=== PATIENT | male | born 1970 | race African-American/Black ===

== ENCOUNTER 2021-05-14 14:17 | Inpatient (IN) | payer OTHER ==
[2021-05-14 15:29] VITALS: BMI 27.6
[2021-05-14] MEDS ORDERED: MENTHOL/PHENOL 1 EACH UD MM PRN (16:05)
[2021-05-14] MEDS ORDERED: LORazepam 1 MG TABLET PO PRN (16:05)
[2021-05-14] MEDS ORDERED: METHOCARBAMOL 500 MG TABLET PO PRN (16:05)
[2021-05-14] MEDS ORDERED: ONDANSETRON *ODT* 4 MG TABLET SL PRN (16:05)
[2021-05-14] MEDS ORDERED: MAGNESIUM HYDROX 2400MG/30ML ORAL SUSPENSION 30 ML CUP PO PRN (16:05)
[2021-05-14] MEDS ORDERED: MAG HYDROX/AL HYDROX/SIMETH 30 ML UNIT-DOSE CUP PO PRN (16:05)
[2021-05-14] MEDS ORDERED: ACETAMINOPHEN 325 MG TABLET (FP) PO PRN ×2 (16:05)
[2021-05-14] MEDS ORDERED: BISMUTH SUBSALICYLATE 524 MG/30 ML PO PRN (16:05)
[2021-05-14] MEDS ORDERED: IBUPROFEN 400 MG TABLET (FP) PO PRN (16:05)
[2021-05-14] MEDS ORDERED: MAGNESIUM CITRATE 300 ML BOTTLE PO PRN (16:05)
[2021-05-14] MEDS: LORazepam 2 MG TABLET PO SCH ×2 (19:17→22:37)
[2021-05-14] MEDS: hydrOXYzine PAMOATE 25 MG CAPSULE (FP) PO SCH ×2 (19:19→22:57)
[2021-05-14] MEDS ORDERED: INSULIN SLIDING SCALE (NOVOLOG) 1 VIAL SQ SCH ×2 (19:38→22:00)
[2021-05-14] MEDS: INSULIN SLIDING SCALE (NOVOLOG) 1 VIAL SQ SCH ×2 (20:25→22:42)
[2021-05-14] MEDS ORDERED: INSULIN SLIDING SCALE (NOVOLOG) 1 VIAL SQ ONE (20:27)
[2021-05-14] MEDS: THIAMINE HCL 100 MG TABLET (FP) PO SCH (22:37)
[2021-05-14] MEDS: MELATONIN 5 MG TABLETS PO SCH (22:41)
[2021-05-15] MEDS: hydrOXYzine PAMOATE 25 MG CAPSULE (FP) PO SCH ×5 (06:04→22:47)
[2021-05-15] MEDS: LORazepam 2 MG TABLET PO SCH ×4 (06:05→22:47)
[2021-05-15] MEDS: INSULIN SLIDING SCALE (NOVOLOG) 1 VIAL SQ SCH ×4 (06:50→22:50)
[2021-05-15 10:02] LABS: HEMOGLOBIN 10.6 GM/dL (11.7-16.9); MCH 23.9 pg (25.7-33.7); MCHC 31.3 g/dl (32.0-35.9); MEAN CELL VOLUME 76.2 fl (80-96); MEAN PLT VOLUME 8.3 fl (7.5-11.1); PLATELET COUNT 258 10^3/uL (134-434); RBC 4.46 M/mm3 (4.00-5.60); WHITE BLOOD COUNT 4.7 K/mm3 (4.0-10.0)
[2021-05-15 10:11] LABS: BILIRUBIN,TOTAL 0.6 mg/dL (0.2-1); BLOOD UREA NITROGEN 8.2 mg/dL (7-18)
[2021-05-15 10:12] LABS: CALCIUM 8.4 mg/dL (8.5-10.1); TOT PROT 6.7 g/dl (6.4-8.2)
[2021-05-15 10:14] LABS: CREATININE 0.8 mg/dL (0.55-1.3)
[2021-05-15] MEDS: PRENATAL VITAMINS W/ FOLIC ACID TABLET (FP) PO SCH (11:04)
[2021-05-15] MEDS ORDERED: INSULIN SLIDING SCALE (NOVOLOG) 1 VIAL SQ ONE (11:37)
[2021-05-15] MEDS: MELATONIN 5 MG TABLETS PO SCH (22:46)
[2021-05-15] MEDS: THIAMINE HCL 100 MG TABLET (FP) PO SCH (22:47)
[2021-05-16] MEDS: INSULIN SLIDING SCALE (NOVOLOG) 1 VIAL SQ SCH ×4 (07:43→22:37)
[2021-05-16] MEDS: LORazepam 1 MG TABLET PO SCH ×4 (07:43→22:33)
[2021-05-16] MEDS: hydrOXYzine PAMOATE 25 MG CAPSULE (FP) PO SCH ×5 (07:43→22:33)
[2021-05-16] MEDS ORDERED: INSULIN SLIDING SCALE (NOVOLOG) 1 VIAL SQ ONE (07:47)
[2021-05-16] MEDS: PRENATAL VITAMINS W/ FOLIC ACID TABLET (FP) PO SCH (10:31)
[2021-05-16] MEDS: MELATONIN 5 MG TABLETS PO SCH (22:33)
[2021-05-16] MEDS: THIAMINE HCL 100 MG TABLET (FP) PO SCH (22:33)
[2021-05-17] MEDS ORDERED: LORazepam 0.5 MG TABLET PO PRN
[2021-05-17] MEDS: hydrOXYzine PAMOATE 25 MG CAPSULE (FP) PO SCH ×5 (07:06→22:40)
[2021-05-17] MEDS: LORazepam 0.5 MG TABLET PO SCH ×4 (07:06→22:40)
[2021-05-17] MEDS: INSULIN SLIDING SCALE (NOVOLOG) 1 VIAL SQ SCH ×4 (07:11→23:14)
[2021-05-17] MEDS: PRENATAL VITAMINS W/ FOLIC ACID TABLET (FP) PO SCH (10:09)
[2021-05-17] MEDS: INSULIN (NOVOLOG MIX 70/30) 100 UNITS/ML MDV SQ SCH (17:45)
[2021-05-17] MEDS: MELATONIN 5 MG TABLETS PO SCH (22:40)
[2021-05-17] MEDS: THIAMINE HCL 100 MG TABLET (FP) PO SCH (22:40)
[2021-05-18] MEDS ORDERED: LORazepam 0.5 MG TABLET PO ONE (05:00)
[2021-05-18] MEDS: hydrOXYzine PAMOATE 25 MG CAPSULE (FP) PO SCH ×2 (06:38→10:36)
[2021-05-18] MEDS: INSULIN SLIDING SCALE (NOVOLOG) 1 VIAL SQ SCH ×5 (06:41→22:35)
[2021-05-18] MEDS: INSULIN (NOVOLOG MIX 70/30) 100 UNITS/ML MDV SQ SCH ×2 (07:37→17:30)
[2021-05-18] MEDS: PRENATAL VITAMINS W/ FOLIC ACID TABLET (FP) PO SCH (10:36)
[2021-05-18] MEDS ORDERED: hydrOXYzine PAMOATE 25 MG CAPSULE (FP) PO PRN (11:21)
[2021-05-18] MEDS: MELATONIN 5 MG TABLETS PO SCH ×2 (22:29→22:35)
[2021-05-18] MEDS: THIAMINE HCL 100 MG TABLET (FP) PO SCH (22:29)
[2021-05-19] MEDS: INSULIN (NOVOLOG MIX 70/30) 100 UNITS/ML MDV SQ SCH (07:38)
[2021-05-19] MEDS: INSULIN SLIDING SCALE (NOVOLOG) 1 VIAL SQ SCH ×2 (07:39→12:51)
[2021-05-19] MEDS: PRENATAL VITAMINS W/ FOLIC ACID TABLET (FP) PO SCH (11:14)
[2021-05-19 13:31] VITALS: BP 118/79; PULSE 102; TEMP 96.4
== END 2021-05-19 15:37 | disposition other institution (70) | DRG 775 ==
LOC: YASAS 14:17 → Y3N 16:27
PROVIDERS: ADMIT Allergy & Immunology; ATTEND Allergy & Immunology
PROC: HZ2ZZZZ Detoxification Services for Substance Abuse Treatment (ICD-10-PCS; principal; 2021-05-14)
DX: F10.230 Alcohol dependence with withdrawal, uncomplicated (principal); E10.65 Type 1 diabetes mellitus with hyperglycemia; D64.9 Anemia, unspecified; R00.0 Tachycardia, unspecified; Z79.4 Long term (current) use of insulin
CPT/HCPCS: 36415; 80053; 82962; 85027; 86780; 93005; 93010; C9803; U0003; U0005

== ENCOUNTER 2021-05-19 15:39 | Inpatient (IN) | payer OTHER ==
[2021-05-19] MEDS ORDERED: MAGNESIUM CITRATE 300 ML BOTTLE PO PRN (15:53)
[2021-05-19] MEDS ORDERED: MENTHOL/PHENOL 1 EACH UD MM PRN (15:53)
[2021-05-19] MEDS ORDERED: LOPERAMIDE HCL 2 MG CAPSULE PO PRN (15:53)
[2021-05-19] MEDS ORDERED: guaiFENesin 200 MG/10 ML 10 ML UNIT-DOSE CUPS PO PRN (15:53)
[2021-05-19] MEDS ORDERED: P-EPHED 60MG/TRIPROLIDI 2.5MG TABLET PO PRN (15:53)
[2021-05-19] MEDS ORDERED: NICOTINE POLACRILEX 2 MG GUM BUC PRN (15:53)
[2021-05-19] MEDS ORDERED: MAGNESIUM HYDROX 2400MG/30ML ORAL SUSPENSION 30 ML CUP PO PRN (15:53)
[2021-05-19] MEDS ORDERED: MAG HYDROX/AL HYDROX/SIMETH 30 ML UNIT-DOSE CUP PO PRN (15:53)
[2021-05-19] MEDS ORDERED: IBUPROFEN 400 MG TABLET (FP) PO PRN (15:53)
[2021-05-19] MEDS ORDERED: ACETAMINOPHEN 325 MG TABLET (FP) PO PRN (15:53)
[2021-05-19] MEDS: INSULIN (NOVOLOG MIX 70/30) 100 UNITS/ML MDV SQ SCH (17:35)
[2021-05-19] MEDS: INSULIN SLIDING SCALE (NOVOLOG) 1 VIAL SQ SCH ×2 (17:38→21:31)
[2021-05-19] MEDS ORDERED: INSULIN (NOVOLOG) ASPART 100 UNITS/ML 10ML VIAL ONE (21:32)
[2021-05-19] MEDS: THIAMINE HCL 100 MG TABLET (FP) PO SCH (21:33)
[2021-05-19] MEDS: hydrOXYzine PAMOATE 25 MG CAPSULE (FP) PO PRN (21:33)
[2021-05-19] MEDS: MELATONIN 5 MG TABLETS PO SCH (21:33)
[2021-05-19] MEDS: levETIRAcetam 500 MG TABLET (FP) PO SCH (21:33)
[2021-05-20] MEDS: INSULIN SLIDING SCALE (NOVOLOG) 1 VIAL SQ SCH ×4 (06:28→22:56)
[2021-05-20] MEDS: INSULIN (NOVOLOG MIX 70/30) 100 UNITS/ML MDV SQ SCH ×2 (06:28→17:09)
[2021-05-20] MEDS ORDERED: INSULIN (NOVOLOG MIX 70/30) 100 UNITS/ML MDV SQ SCH (07:00)
[2021-05-20] MEDS ORDERED: METHOCARBAMOL 500 MG TABLET PO PRN (09:31)
[2021-05-20] MEDS: levETIRAcetam 500 MG TABLET (FP) PO SCH ×2 (09:40→21:51)
[2021-05-20] MEDS: PRENATAL VITAMINS W/ FOLIC ACID TABLET (FP) PO SCH (09:40)
[2021-05-20] MEDS: NICOTINE 7 MG/24 HOURS TOPICAL PATCH TD SCH (09:40)
[2021-05-20] MEDS ORDERED: COLLOIDAL OATMEAL 1 BAR EACH TP PRN (10:56)
[2021-05-20] MEDS: FOLIC ACID 1 MG TABLET (FP) PO SCH (11:28)
[2021-05-20] MEDS ORDERED: INSULIN (NOVOLOG) ASPART 100 UNITS/ML 10ML VIAL ONE ×2 (11:30→17:06)
[2021-05-20 12:34] LABS: HIV INTERPRETATION NEGATIVE (NEGATIVE)
[2021-05-20] MEDS: THIAMINE HCL 100 MG TABLET (FP) PO SCH (21:55)
[2021-05-20] MEDS: MELATONIN 5 MG TABLETS PO SCH ×2 (22:56→23:56)
[2021-05-20] MEDS: hydrOXYzine PAMOATE 25 MG CAPSULE (FP) PO PRN (23:55)
[2021-05-21] MEDS: INSULIN SLIDING SCALE (NOVOLOG) 1 VIAL SQ SCH ×4 (06:29→21:24)
[2021-05-21] MEDS: INSULIN (NOVOLOG MIX 70/30) 100 UNITS/ML MDV SQ SCH ×2 (06:30→16:55)
[2021-05-21] MEDS: PRENATAL VITAMINS W/ FOLIC ACID TABLET (FP) PO SCH (10:35)
[2021-05-21] MEDS: NICOTINE 7 MG/24 HOURS TOPICAL PATCH TD SCH (10:35)
[2021-05-21] MEDS: levETIRAcetam 500 MG TABLET (FP) PO SCH ×2 (10:35→21:22)
[2021-05-21] MEDS: PANTOPRAZOLE 40 MG TABLET PO SCH (10:35)
[2021-05-21] MEDS: FOLIC ACID 1 MG TABLET (FP) PO SCH (10:35)
[2021-05-21] MEDS ORDERED: INSULIN (NOVOLOG) ASPART 100 UNITS/ML 10ML VIAL ONE ×2 (17:10→23:41)
[2021-05-21] MEDS: THIAMINE HCL 100 MG TABLET (FP) PO SCH (21:22)
[2021-05-21] MEDS: MELATONIN 5 MG TABLETS PO SCH (21:22)
[2021-05-22] MEDS ORDERED: INSULIN (NOVOLOG) ASPART 100 UNITS/ML 10ML VIAL ONE ×4 (07:12→22:34)
[2021-05-22] MEDS: INSULIN SLIDING SCALE (NOVOLOG) 1 VIAL SQ SCH ×4 (08:38→21:19)
[2021-05-22] MEDS: INSULIN (NOVOLOG MIX 70/30) 100 UNITS/ML MDV SQ SCH ×2 (08:38→16:57)
[2021-05-22] MEDS: NICOTINE 7 MG/24 HOURS TOPICAL PATCH TD SCH (10:17)
[2021-05-22] MEDS: levETIRAcetam 500 MG TABLET (FP) PO SCH ×2 (10:46→21:18)
[2021-05-22] MEDS: PANTOPRAZOLE 40 MG TABLET PO SCH (10:46)
[2021-05-22] MEDS: PRENATAL VITAMINS W/ FOLIC ACID TABLET (FP) PO SCH (10:46)
[2021-05-22] MEDS: FOLIC ACID 1 MG TABLET (FP) PO SCH (10:46)
[2021-05-22] MEDS: THIAMINE HCL 100 MG TABLET (FP) PO SCH (21:19)
[2021-05-22] MEDS: MELATONIN 5 MG TABLETS PO SCH (21:19)
[2021-05-23] MEDS: INSULIN SLIDING SCALE (NOVOLOG) 1 VIAL SQ SCH ×4 (06:18→21:45)
[2021-05-23] MEDS: INSULIN (NOVOLOG MIX 70/30) 100 UNITS/ML MDV SQ SCH ×2 (06:22→16:37)
[2021-05-23] MEDS ORDERED: PT OWN MED DRAWER 7, Y5N ONE (09:27)
[2021-05-23] MEDS: NICOTINE 7 MG/24 HOURS TOPICAL PATCH TD SCH (09:45)
[2021-05-23] MEDS: PRENATAL VITAMINS W/ FOLIC ACID TABLET (FP) PO SCH (09:45)
[2021-05-23] MEDS: levETIRAcetam 500 MG TABLET (FP) PO SCH ×2 (09:46→21:44)
[2021-05-23] MEDS: PANTOPRAZOLE 40 MG TABLET PO SCH (09:46)
[2021-05-23] MEDS: FOLIC ACID 1 MG TABLET (FP) PO SCH (09:46)
[2021-05-23] MEDS ORDERED: INSULIN (NOVOLOG) ASPART 100 UNITS/ML 10ML VIAL ONE (11:46)
[2021-05-23] MEDS: THIAMINE HCL 100 MG TABLET (FP) PO SCH (21:44)
[2021-05-23] MEDS: MELATONIN 5 MG TABLETS PO SCH (21:44)
[2021-05-24] MEDS: INSULIN (NOVOLOG MIX 70/30) 100 UNITS/ML MDV SQ SCH ×2 (06:32→19:05)
[2021-05-24] MEDS: INSULIN SLIDING SCALE (NOVOLOG) 1 VIAL SQ SCH ×4 (06:32→20:59)
[2021-05-24] MEDS: PRENATAL VITAMINS W/ FOLIC ACID TABLET (FP) PO SCH (09:43)
[2021-05-24] MEDS: FOLIC ACID 1 MG TABLET (FP) PO SCH (09:43)
[2021-05-24] MEDS: NICOTINE 7 MG/24 HOURS TOPICAL PATCH TD SCH (09:43)
[2021-05-24] MEDS: levETIRAcetam 500 MG TABLET (FP) PO SCH ×2 (09:44→20:59)
[2021-05-24] MEDS: PANTOPRAZOLE 40 MG TABLET PO SCH (09:44)
[2021-05-24] MEDS ORDERED: INSULIN (NOVOLOG) ASPART 100 UNITS/ML 10ML VIAL ONE ×3 (11:26→21:57)
[2021-05-24] MEDS ORDERED: PT OWN MED DRAWER 7, Y5N ONE (11:27)
[2021-05-24] MEDS: MELATONIN 5 MG TABLETS PO SCH (20:59)
[2021-05-24] MEDS: THIAMINE HCL 100 MG TABLET (FP) PO SCH (20:59)
[2021-05-25] MEDS: INSULIN (NOVOLOG MIX 70/30) 100 UNITS/ML MDV SQ SCH (06:40)
[2021-05-25] MEDS: INSULIN SLIDING SCALE (NOVOLOG) 1 VIAL SQ SCH ×2 (06:40→11:42)
[2021-05-25 06:51] VITALS: BP 122/75; PULSE 87; TEMP 97.3
[2021-05-25] MEDS: FOLIC ACID 1 MG TABLET (FP) PO SCH (09:29)
[2021-05-25] MEDS: levETIRAcetam 500 MG TABLET (FP) PO SCH (09:29)
[2021-05-25] MEDS: PANTOPRAZOLE 40 MG TABLET PO SCH (09:30)
[2021-05-25] MEDS: NICOTINE 7 MG/24 HOURS TOPICAL PATCH TD SCH (09:30)
[2021-05-25] MEDS: PRENATAL VITAMINS W/ FOLIC ACID TABLET (FP) PO SCH (09:30)
[2021-05-25] MEDS ORDERED: COVID-19 VAC,AD26(JANSSEN)/PF 0.5 ML IM ONE (11:00)
== END 2021-05-25 14:40 | disposition home or self-care (01) | DRG 772 ==
LOC: YASAS 15:39 → Y3E 15:49
PROVIDERS: ADMIT Allergy & Immunology; ATTEND Allergy & Immunology
PROC: HZ42ZZZ Group Counseling for Substance Abuse Treatment, Cognitive-Behavioral (ICD-10-PCS; principal; 2021-05-19)
DX: F10.20 Alcohol dependence, uncomplicated (principal); G40.909 Epilepsy, unspecified, not intractable, without status epilepticus; E11.9 Type 2 diabetes mellitus without complications; Z79.4 Long term (current) use of insulin; Z88.8 Allergy status to other drugs, medicaments and biological substances; Z91.048 Other nonmedicinal substance allergy status; Z91.013 Allergy to seafood
CPT/HCPCS: 0031A; 36415; 80177; 82962; 87389; 91303

== ENCOUNTER 2021-10-12 14:32 | Inpatient (IN) | payer OTHER ==
[2021-10-12] MEDS ORDERED: ONDANSETRON *ODT* 4 MG TABLET SL PRN (16:36)
[2021-10-12] MEDS ORDERED: MENTHOL/PHENOL 1 EACH UD MM PRN (16:36)
[2021-10-12] MEDS ORDERED: MAGNESIUM HYDROX 2400MG/30ML ORAL SUSPENSION 30 ML CUP PO PRN (16:36)
[2021-10-12] MEDS ORDERED: ACETAMINOPHEN 325 MG TABLET (FP) PO PRN ×2 (16:36)
[2021-10-12] MEDS ORDERED: METHOCARBAMOL 500 MG TABLET PO PRN (16:36)
[2021-10-12] MEDS ORDERED: MAGNESIUM CITRATE 300 ML BOTTLE PO PRN (16:36)
[2021-10-12] MEDS ORDERED: IBUPROFEN 400 MG TABLET (FP) PO PRN (16:36)
[2021-10-12] MEDS ORDERED: BISMUTH SUBSALICYLATE 524 MG/30 ML PO PRN (16:36)
[2021-10-12] MEDS ORDERED: MAG HYDROX/AL HYDROX/SIMETH 30 ML UNIT-DOSE CUP PO PRN (16:36)
[2021-10-12] MEDS ORDERED: ALBUTEROL SO4 HFA INHALER IH PRN (16:42)
[2021-10-12 17:05] VITALS: BMI 28.3
[2021-10-12] MEDS: hydrOXYzine PAMOATE 25 MG CAPSULE (FP) PO SCH ×2 (18:42→22:48)
[2021-10-12] MEDS: MELATONIN 5 MG TABLETS PO SCH (22:47)
[2021-10-12] MEDS: levETIRAcetam 500 MG TABLET (FP) PO SCH (22:47)
[2021-10-12] MEDS: INSULIN SLIDING SCALE (NOVOLOG) 1 VIAL SQ SCH (22:49)
[2021-10-12] MEDS: THIAMINE HCL 100 MG TABLET (FP) PO SCH (23:06)
[2021-10-12] MEDS: HYDROCORTISONE 2.5% TOPICAL CREAM 30 GM TUBE TP SCH (23:07)
[2021-10-13] MEDS ORDERED: INSULIN (NOVOLOG MIX 70/30) 100 UNITS/ML MDV SQ ONE (04:25)
[2021-10-13] MEDS: hydrOXYzine PAMOATE 25 MG CAPSULE (FP) PO SCH ×5 (05:47→22:19)
[2021-10-13] MEDS: INSULIN (NOVOLOG MIX 70/30) 100 UNITS/ML MDV SQ SCH ×2 (06:15→17:50)
[2021-10-13] MEDS: INSULIN SLIDING SCALE (NOVOLOG) 1 VIAL SQ SCH ×4 (06:15→22:19)
[2021-10-13] MEDS ORDERED: diazePAM 5 MG TABLET PO PRN (09:38)
[2021-10-13] MEDS: levETIRAcetam 500 MG TABLET (FP) PO SCH ×2 (10:08→22:18)
[2021-10-13] MEDS: PANTOPRAZOLE 40 MG TABLET PO SCH (10:09)
[2021-10-13] MEDS: PRENATAL VITAMINS W/ FOLIC ACID TABLET (FP) PO SCH (10:09)
[2021-10-13] MEDS: HYDROCORTISONE 2.5% TOPICAL CREAM 30 GM TUBE TP SCH (10:09)
[2021-10-13] MEDS: diazePAM 5 MG TABLET PO SCH ×3 (10:10→22:19)
[2021-10-13] MEDS ORDERED: INSULIN (NOVOLOG) ASPART 100 UNITS/ML 10ML VIAL SQ ONE (14:00)
[2021-10-13] MEDS: MELATONIN 5 MG TABLETS PO SCH (22:19)
[2021-10-13] MEDS: THIAMINE HCL 100 MG TABLET (FP) PO SCH (22:19)
[2021-10-14] MEDS: hydrOXYzine PAMOATE 25 MG CAPSULE (FP) PO SCH ×5 (06:31→23:11)
[2021-10-14] MEDS: diazePAM 5 MG TABLET PO SCH ×4 (06:32→23:11)
[2021-10-14] MEDS: INSULIN (NOVOLOG MIX 70/30) 100 UNITS/ML MDV SQ SCH ×2 (06:39→18:20)
[2021-10-14] MEDS: INSULIN SLIDING SCALE (NOVOLOG) 1 VIAL SQ SCH ×4 (06:40→23:09)
[2021-10-14] MEDS: levETIRAcetam 500 MG TABLET (FP) PO SCH ×2 (10:46→23:09)
[2021-10-14] MEDS: PRENATAL VITAMINS W/ FOLIC ACID TABLET (FP) PO SCH (10:46)
[2021-10-14] MEDS: PANTOPRAZOLE 40 MG TABLET PO SCH (10:46)
[2021-10-14] MEDS: HYDROCORTISONE 2.5% TOPICAL CREAM 30 GM TUBE TP SCH (10:47)
[2021-10-14] MEDS: MELATONIN 5 MG TABLETS PO SCH (23:09)
[2021-10-14] MEDS: THIAMINE HCL 100 MG TABLET (FP) PO SCH (23:11)
[2021-10-15] MEDS: hydrOXYzine PAMOATE 25 MG CAPSULE (FP) PO SCH ×5 (05:26→21:38)
[2021-10-15] MEDS: diazePAM 5 MG TABLET PO SCH ×3 (05:27→21:37)
[2021-10-15] MEDS: INSULIN SLIDING SCALE (NOVOLOG) 1 VIAL SQ SCH ×4 (06:22→21:39)
[2021-10-15] MEDS: INSULIN (NOVOLOG MIX 70/30) 100 UNITS/ML MDV SQ SCH ×2 (06:23→18:31)
[2021-10-15] MEDS: levETIRAcetam 500 MG TABLET (FP) PO SCH ×2 (10:10→21:38)
[2021-10-15] MEDS: PANTOPRAZOLE 40 MG TABLET PO SCH (10:10)
[2021-10-15] MEDS: PRENATAL VITAMINS W/ FOLIC ACID TABLET (FP) PO SCH (10:10)
[2021-10-15] MEDS: HYDROCORTISONE 2.5% TOPICAL CREAM 30 GM TUBE TP SCH (10:11)
[2021-10-15] MEDS: THIAMINE HCL 100 MG TABLET (FP) PO SCH (21:37)
[2021-10-15] MEDS: MELATONIN 5 MG TABLETS PO SCH (21:39)
[2021-10-16] MEDS: diazePAM 5 MG TABLET PO SCH ×2 (05:23→18:36)
[2021-10-16] MEDS: hydrOXYzine PAMOATE 25 MG CAPSULE (FP) PO SCH ×5 (05:24→21:52)
[2021-10-16] MEDS: INSULIN SLIDING SCALE (NOVOLOG) 1 VIAL SQ SCH ×4 (08:11→21:53)
[2021-10-16] MEDS: INSULIN (NOVOLOG MIX 70/30) 100 UNITS/ML MDV SQ SCH ×2 (08:11→18:41)
[2021-10-16] MEDS: levETIRAcetam 500 MG TABLET (FP) PO SCH ×2 (10:28→21:52)
[2021-10-16] MEDS: PRENATAL VITAMINS W/ FOLIC ACID TABLET (FP) PO SCH (10:28)
[2021-10-16] MEDS: HYDROCORTISONE 2.5% TOPICAL CREAM 30 GM TUBE TP SCH (10:28)
[2021-10-16] MEDS: PANTOPRAZOLE 40 MG TABLET PO SCH (10:28)
[2021-10-16] MEDS: THIAMINE HCL 100 MG TABLET (FP) PO SCH (21:52)
[2021-10-16] MEDS: MELATONIN 5 MG TABLETS PO SCH (21:53)
[2021-10-17] MEDS ORDERED: diazePAM 5 MG TABLET PO ONE (06:00)
[2021-10-17] MEDS: hydrOXYzine PAMOATE 25 MG CAPSULE (FP) PO SCH ×3 (06:40→14:12)
[2021-10-17] MEDS: INSULIN (NOVOLOG MIX 70/30) 100 UNITS/ML MDV SQ SCH (06:42)
[2021-10-17] MEDS: INSULIN SLIDING SCALE (NOVOLOG) 1 VIAL SQ SCH ×2 (06:43→12:14)
[2021-10-17 09:20] VITALS: BP 118/62
[2021-10-17] MEDS: HYDROCORTISONE 2.5% TOPICAL CREAM 30 GM TUBE TP SCH (10:37)
[2021-10-17] MEDS: levETIRAcetam 500 MG TABLET (FP) PO SCH (10:37)
[2021-10-17] MEDS: PRENATAL VITAMINS W/ FOLIC ACID TABLET (FP) PO SCH (10:38)
[2021-10-17] MEDS: PANTOPRAZOLE 40 MG TABLET PO SCH (10:38)
[2021-10-17] MEDS ORDERED: INSULIN SLIDING SCALE (NOVOLOG) 1 VIAL SQ ONE (12:11)
[2021-10-17 13:11] VITALS: PULSE 91; TEMP 97.7
== END 2021-10-17 14:46 | disposition home or self-care (01) | DRG 775 ==
LOC: YASAS 14:32 → Y3N 17:47
PROVIDERS: ADMIT Allergy & Immunology; ATTEND Allergy & Immunology
PROC: HZ2ZZZZ Detoxification Services for Substance Abuse Treatment (ICD-10-PCS; principal; 2021-10-12)
DX: F10.230 Alcohol dependence with withdrawal, uncomplicated (principal); E11.9 Type 2 diabetes mellitus without complications; J45.909 Unspecified asthma, uncomplicated; K21.9 Gastro-esophageal reflux disease without esophagitis; G40.909 Epilepsy, unspecified, not intractable, without status epilepticus; Z88.8 Allergy status to other drugs, medicaments and biological substances; Z91.013 Allergy to seafood; Z79.4 Long term (current) use of insulin
CPT/HCPCS: 82962; C9803; U0003; U0005

== ENCOUNTER 2021-10-17 14:51 | Inpatient (IN) | payer OTHER ==
[2021-10-17 17:52] VITALS: BMI 29.4
[2021-10-17] MEDS ORDERED: IBUPROFEN 400 MG TABLET (FP) PO PRN (19:09)
[2021-10-17] MEDS ORDERED: LOPERAMIDE HCL 2 MG CAPSULE PO PRN (19:09)
[2021-10-17] MEDS ORDERED: MAG HYDROX/AL HYDROX/SIMETH 30 ML UNIT-DOSE CUP PO PRN (19:09)
[2021-10-17] MEDS ORDERED: P-EPHED 60MG/TRIPROLIDI 2.5MG TABLET PO PRN (19:09)
[2021-10-17] MEDS ORDERED: NICOTINE 10 MG CARTRIDGE (INHALER) IH PRN (19:09)
[2021-10-17] MEDS ORDERED: MAGNESIUM CITRATE 300 ML BOTTLE PO PRN (19:09)
[2021-10-17] MEDS ORDERED: guaiFENesin 200 MG/10 ML 10 ML UNIT-DOSE CUPS PO PRN (19:09)
[2021-10-17] MEDS ORDERED: MAGNESIUM HYDROX 2400MG/30ML ORAL SUSPENSION 30 ML CUP PO PRN (19:09)
[2021-10-17] MEDS ORDERED: ACETAMINOPHEN 325 MG TABLET (FP) PO PRN (19:09)
[2021-10-17] MEDS ORDERED: MENTHOL/PHENOL 1 EACH UD MM PRN (19:09)
[2021-10-17] MEDS ORDERED: ALBUTEROL SO4 HFA INHALER IH PRN (19:11)
[2021-10-17] MEDS: THIAMINE HCL 100 MG TABLET (FP) PO SCH (21:43)
[2021-10-17] MEDS: hydrOXYzine PAMOATE 25 MG CAPSULE (FP) PO SCH (21:43)
[2021-10-17] MEDS: MELATONIN 5 MG TABLETS PO SCH (21:43)
[2021-10-17] MEDS ORDERED: INSULIN SLIDING SCALE (NOVOLOG) 1 VIAL SQ ONE (21:47)
[2021-10-17] MEDS: INSULIN SLIDING SCALE (NOVOLOG) 1 VIAL SQ SCH (21:48)
[2021-10-17] MEDS: levETIRAcetam 250 MG TABLET PO SCH (23:28)
[2021-10-18] MEDS: hydrOXYzine PAMOATE 25 MG CAPSULE (FP) PO SCH ×5 (06:06→21:28)
[2021-10-18] MEDS ORDERED: INSULIN (NOVOLOG MIX 70/30) 100 UNITS/ML MDV SQ ONE (06:41)
[2021-10-18] MEDS: INSULIN (NOVOLOG MIX 70/30) 100 UNITS/ML MDV SQ SCH ×2 (06:44→17:29)
[2021-10-18] MEDS: INSULIN SLIDING SCALE (NOVOLOG) 1 VIAL SQ SCH ×4 (07:42→21:28)
[2021-10-18] MEDS: PANTOPRAZOLE 40 MG TABLET PO SCH (10:07)
[2021-10-18] MEDS: PRENATAL VITAMINS W/ FOLIC ACID TABLET (FP) PO SCH (10:07)
[2021-10-18] MEDS: levETIRAcetam 250 MG TABLET PO SCH ×2 (10:08→21:28)
[2021-10-18] MEDS: NICOTINE 7 MG/24 HOURS TOPICAL PATCH TD SCH (10:08)
[2021-10-18] MEDS: MELATONIN 5 MG TABLETS PO SCH (21:28)
[2021-10-18] MEDS: THIAMINE HCL 100 MG TABLET (FP) PO SCH (21:29)
[2021-10-19] MEDS: hydrOXYzine PAMOATE 25 MG CAPSULE (FP) PO SCH ×6 (06:31→21:27)
[2021-10-19] MEDS: INSULIN (NOVOLOG MIX 70/30) 100 UNITS/ML MDV SQ SCH ×2 (06:37→16:58)
[2021-10-19] MEDS: INSULIN SLIDING SCALE (NOVOLOG) 1 VIAL SQ SCH ×4 (06:38→21:22)
[2021-10-19] MEDS ORDERED: INSULIN SLIDING SCALE (NOVOLOG) 1 VIAL SQ ONE (06:38)
[2021-10-19] MEDS: PRENATAL VITAMINS W/ FOLIC ACID TABLET (FP) PO SCH (10:07)
[2021-10-19] MEDS: NICOTINE 7 MG/24 HOURS TOPICAL PATCH TD SCH (10:07)
[2021-10-19] MEDS: levETIRAcetam 250 MG TABLET PO SCH ×2 (10:07→21:17)
[2021-10-19] MEDS: PANTOPRAZOLE 40 MG TABLET PO SCH (10:09)
[2021-10-19] MEDS ORDERED: COLLOIDAL OATMEAL 1 BAR EACH TP PRN (12:15)
[2021-10-19] MEDS: GABAPENTIN 100 MG CAPSULE PO SCH ×2 (14:19→21:18)
[2021-10-19] MEDS: HYDROCORTISONE 2.5% TOPICAL CREAM 30 GM TUBE RC SCH ×2 (14:28→21:22)
[2021-10-19] MEDS: THIAMINE HCL 100 MG TABLET (FP) PO SCH (21:17)
[2021-10-19] MEDS: MELATONIN 5 MG TABLETS PO SCH (21:17)
[2021-10-20] MEDS ORDERED: INSULIN (NOVOLOG MIX 70/30) 100 UNITS/ML MDV SQ ONE (02:03)
[2021-10-20] MEDS: hydrOXYzine PAMOATE 25 MG CAPSULE (FP) PO SCH ×5 (06:16→21:16)
[2021-10-20] MEDS: GABAPENTIN 100 MG CAPSULE PO SCH ×3 (06:16→21:16)
[2021-10-20] MEDS: INSULIN (NOVOLOG MIX 70/30) 100 UNITS/ML MDV SQ SCH ×2 (06:19→16:42)
[2021-10-20] MEDS: INSULIN SLIDING SCALE (NOVOLOG) 1 VIAL SQ SCH ×4 (06:19→21:18)
[2021-10-20] MEDS: NICOTINE 7 MG/24 HOURS TOPICAL PATCH TD SCH (10:13)
[2021-10-20] MEDS: PANTOPRAZOLE 40 MG TABLET PO SCH (10:13)
[2021-10-20] MEDS: levETIRAcetam 250 MG TABLET PO SCH ×2 (10:13→22:43)
[2021-10-20] MEDS: PRENATAL VITAMINS W/ FOLIC ACID TABLET (FP) PO SCH (10:14)
[2021-10-20] MEDS: MELATONIN 5 MG TABLETS PO SCH (21:16)
[2021-10-20] MEDS: THIAMINE HCL 100 MG TABLET (FP) PO SCH (21:16)
[2021-10-20] MEDS: HYDROCORTISONE 2.5% TOPICAL CREAM 30 GM TUBE RC SCH (21:17)
[2021-10-21] MEDS: GABAPENTIN 100 MG CAPSULE PO SCH (06:32)
[2021-10-21] MEDS: hydrOXYzine PAMOATE 25 MG CAPSULE (FP) PO SCH (06:32)
[2021-10-21] MEDS: INSULIN (NOVOLOG MIX 70/30) 100 UNITS/ML MDV SQ SCH (06:32)
[2021-10-21] MEDS: INSULIN SLIDING SCALE (NOVOLOG) 1 VIAL SQ SCH (06:33)
[2021-10-21 06:58] VITALS: BP 133/85; PULSE 95; TEMP 98.2
== END 2021-10-21 06:43 | disposition left against medical advice (07) | DRG 770 ==
LOC: YASAS 14:51 → Y3W 14:54
PROVIDERS: ADMIT Allergy & Immunology; ATTEND Allergy & Immunology
PROC: HZ42ZZZ Group Counseling for Substance Abuse Treatment, Cognitive-Behavioral (ICD-10-PCS; principal; 2021-10-17)
DX: F11.20 Opioid dependence, uncomplicated (principal); J45.909 Unspecified asthma, uncomplicated; K21.9 Gastro-esophageal reflux disease without esophagitis; E10.40 Type 1 diabetes mellitus with diabetic neuropathy, unspecified; Z79.4 Long term (current) use of insulin; G40.909 Epilepsy, unspecified, not intractable, without status epilepticus; Z91.013 Allergy to seafood; Z88.8 Allergy status to other drugs, medicaments and biological substances; Z91.14 Patient's other noncompliance with medication regimen
CPT/HCPCS: 82962

== ENCOUNTER 2022-01-28 15:56 | Inpatient (IN) | payer OTHER ==
[2022-01-28 17:33] VITALS: BMI 31.5
[2022-01-28] MEDS ORDERED: MAG HYDROX/AL HYDROX/SIMETH 30 ML UNIT-DOSE CUP PO PRN (18:58)
[2022-01-28] MEDS ORDERED: LOPERAMIDE HCL 2 MG CAPSULE PO PRN (18:58)
[2022-01-28] MEDS ORDERED: MAGNESIUM HYDROX 2400MG/30ML ORAL SUSPENSION 30 ML CUP PO PRN (18:58)
[2022-01-28] MEDS ORDERED: BISMUTH SUBSALICYLATE 524 MG/30 ML PO PRN (18:58)
[2022-01-28] MEDS ORDERED: NICOTINE 10 MG CARTRIDGE (INHALER) IH PRN (18:58)
[2022-01-28] MEDS ORDERED: MAGNESIUM CITRATE 300 ML BOTTLE PO PRN (18:58)
[2022-01-28] MEDS ORDERED: IBUPROFEN 400 MG TABLET (FP) PO PRN (18:58)
[2022-01-28] MEDS ORDERED: ONDANSETRON *ODT* 4 MG TABLET SL PRN (18:58)
[2022-01-28] MEDS ORDERED: MENTHOL/PHENOL 1 EACH UD MM PRN (18:58)
[2022-01-28] MEDS ORDERED: ACETAMINOPHEN 325 MG TABLET (FP) PO PRN ×2 (18:58)
[2022-01-28] MEDS ORDERED: ALBUTEROL SO4 HFA INHALER IH PRN (19:02)
[2022-01-28] MEDS ORDERED: INSULIN (NOVOLOG) ASPART 100 UNITS/ML 10ML VIAL SQ ONE (23:34)
[2022-01-28] MEDS: INSULIN SLIDING SCALE (NOVOLOG) 1 VIAL SQ SCH (23:39)
[2022-01-28] MEDS ORDERED: INSULIN (NOVOLOG) ASPART 100 UNITS/ML 10ML VIAL ONE (23:42)
[2022-01-28] MEDS: MELATONIN 5 MG TABLETS PO SCH (23:44)
[2022-01-28] MEDS: levETIRAcetam 500 MG TABLET (FP) PO SCH (23:44)
[2022-01-28] MEDS: PRENATAL VITAMINS W/ FOLIC ACID TABLET (FP) PO SCH (23:44)
[2022-01-28] MEDS: THIAMINE HCL 100 MG TABLET (FP) PO SCH (23:44)
[2022-01-28] MEDS: HYDROCORTISONE 2.5% TOPICAL CREAM 30 GM TUBE PR SCH (23:52)
[2022-01-29] MEDS: INSULIN SLIDING SCALE (NOVOLOG) 1 VIAL SQ SCH ×4 (07:22→22:19)
[2022-01-29] MEDS ORDERED: ALBUTEROL SO4 HFA INHALER IH PRN (10:13)
[2022-01-29] MEDS ORDERED: PATIENT'S OWN MEDICATION (NON-FORMULARY) (Omeprazole Magnesium [Prilosec Otc] 20 MG Tablet PO SCH (10:15)
[2022-01-29] MEDS ORDERED: chlordiazePOXIDE HCL 25 MG CAPSULE PO PRN (10:18)
[2022-01-29] MEDS: PRENATAL VITAMINS W/ FOLIC ACID TABLET (FP) PO SCH (11:03)
[2022-01-29] MEDS: PANTOPRAZOLE 40 MG TABLET PO SCH (11:03)
[2022-01-29] MEDS: chlordiazePOXIDE HCL 25 MG CAPSULE PO SCH ×3 (11:07→22:17)
[2022-01-29] MEDS: levETIRAcetam 500 MG TABLET (FP) PO SCH ×2 (11:07→22:16)
[2022-01-29 14:33] LABS: HEMATOCRIT 30.6 % (35.4-49); HEMOGLOBIN 9.6 GM/dL (11.7-16.9); MCH 22.5 pg (25.7-33.7); MCHC 31.6 g/dl (32.0-35.9); MEAN CELL VOLUME 71.4 fl (80-96); MEAN PLT VOLUME 8.4 fl (7.5-11.1); PLATELET COUNT 210 10^3/uL (134-434); RBC 4.28 M/mm3 (4.00-5.60); RDW 23.2 % (11.9-15.9); WHITE BLOOD COUNT 4.7 K/mm3 (4.0-10.0)
[2022-01-29 14:40] LABS: ALBUMIN 3.1 g/dl (3.4-5.0); CREATININE 0.7 mg/dL (0.55-1.3)
[2022-01-29 14:42] LABS: BILIRUBIN,TOTAL 0.4 mg/dL (0.2-1); BLOOD UREA NITROGEN 11.1 mg/dL (7-18); TOT PROT 6.5 g/dl (6.4-8.2)
[2022-01-29 14:43] LABS: CALCIUM 8.6 mg/dL (8.5-10.1)
[2022-01-29] MEDS: HYDROCORTISONE 2.5% TOPICAL CREAM 30 GM TUBE PR SCH (14:49)
[2022-01-29] MEDS ORDERED: INSULIN (NOVOLOG) ASPART 100 UNITS/ML 10ML VIAL ONE (16:38)
[2022-01-29] MEDS: MELATONIN 5 MG TABLETS PO SCH (22:15)
[2022-01-29] MEDS: THIAMINE HCL 100 MG TABLET (FP) PO SCH (22:16)
[2022-01-30] MEDS: INSULIN SLIDING SCALE (NOVOLOG) 1 VIAL SQ SCH ×4 (06:44→23:09)
[2022-01-30] MEDS: chlordiazePOXIDE HCL 25 MG CAPSULE PO SCH ×4 (06:45→23:00)
[2022-01-30 08:07] LABS: SARS-CoV-2 NAA Not Detected (Not Detected)
[2022-01-30] MEDS: levETIRAcetam 500 MG TABLET (FP) PO SCH ×2 (10:19→23:01)
[2022-01-30] MEDS: METHOCARBAMOL 500 MG TABLET PO PRN (10:19)
[2022-01-30] MEDS: PANTOPRAZOLE 40 MG TABLET PO SCH (10:19)
[2022-01-30] MEDS: PRENATAL VITAMINS W/ FOLIC ACID TABLET (FP) PO SCH (10:19)
[2022-01-30] MEDS: HYDROCORTISONE 2.5% TOPICAL CREAM 30 GM TUBE PR SCH (10:21)
[2022-01-30] MEDS: MELATONIN 5 MG TABLETS PO SCH (23:01)
[2022-01-30] MEDS: THIAMINE HCL 100 MG TABLET (FP) PO SCH (23:01)
[2022-01-30] MEDS: INSULIN (LEVEMIR) 100 UNITS/ML UNITS SQ SCH (23:06)
[2022-01-31] MEDS: chlordiazePOXIDE HCL 25 MG CAPSULE PO SCH ×3 (07:08→19:04)
[2022-01-31] MEDS ORDERED: INSULIN (NOVOLOG) ASPART 100 UNITS/ML 10ML VIAL ONE ×3 (07:12→18:28)
[2022-01-31] MEDS: INSULIN (NOVOLOG MIX 70/30) 100 UNITS/ML MDV SQ SCH ×2 (07:17→16:50)
[2022-01-31] MEDS: INSULIN SLIDING SCALE (NOVOLOG) 1 VIAL SQ SCH ×3 (07:21→18:33)
[2022-01-31] MEDS: PRENATAL VITAMINS W/ FOLIC ACID TABLET (FP) PO SCH (10:55)
[2022-01-31] MEDS: HYDROCORTISONE 2.5% TOPICAL CREAM 30 GM TUBE PR SCH (10:55)
[2022-01-31] MEDS: METHOCARBAMOL 500 MG TABLET PO PRN (10:55)
[2022-01-31] MEDS: PANTOPRAZOLE 40 MG TABLET PO SCH (10:55)
[2022-01-31] MEDS: levETIRAcetam 500 MG TABLET (FP) PO SCH (10:56)
[2022-02-01] MEDS ORDERED: chlordiazePOXIDE HCL 10 MG CAPSULE PO PRN
[2022-02-01] MEDS: INSULIN (LEVEMIR) 100 UNITS/ML UNITS SQ SCH ×2 (00:01→22:32)
[2022-02-01] MEDS: levETIRAcetam 500 MG TABLET (FP) PO SCH ×3 (00:01→22:31)
[2022-02-01] MEDS: INSULIN SLIDING SCALE (NOVOLOG) 1 VIAL SQ SCH ×5 (00:02→22:32)
[2022-02-01] MEDS: chlordiazePOXIDE HCL 25 MG CAPSULE PO SCH (00:02)
[2022-02-01] MEDS: THIAMINE HCL 100 MG TABLET (FP) PO SCH ×2 (00:02→22:30)
[2022-02-01] MEDS: MELATONIN 5 MG TABLETS PO SCH ×2 (00:02→22:32)
[2022-02-01] MEDS: chlordiazePOXIDE HCL 10 MG CAPSULE PO SCH ×4 (05:19→22:31)
[2022-02-01] MEDS ORDERED: INSULIN (NOVOLOG) ASPART 100 UNITS/ML 10ML VIAL ONE ×3 (07:28→22:30)
[2022-02-01] MEDS: INSULIN (NOVOLOG MIX 70/30) 100 UNITS/ML MDV SQ SCH ×2 (07:30→17:19)
[2022-02-01] MEDS: PANTOPRAZOLE 40 MG TABLET PO SCH (10:25)
[2022-02-01] MEDS: PRENATAL VITAMINS W/ FOLIC ACID TABLET (FP) PO SCH (10:25)
[2022-02-01] MEDS: HYDROCORTISONE 2.5% TOPICAL CREAM 30 GM TUBE PR SCH (10:29)
[2022-02-02] MEDS ORDERED: chlordiazePOXIDE HCL 10 MG CAPSULE PO SCH (05:00)
[2022-02-02] MEDS: INSULIN (NOVOLOG MIX 70/30) 100 UNITS/ML MDV SQ SCH (08:01)
[2022-02-02] MEDS: INSULIN SLIDING SCALE (NOVOLOG) 1 VIAL SQ SCH ×2 (08:02→11:52)
[2022-02-02 09:20] VITALS: BP 108/59; PULSE 72; TEMP 98.2
[2022-02-02] MEDS: PANTOPRAZOLE 40 MG TABLET PO SCH (10:21)
[2022-02-02] MEDS: levETIRAcetam 500 MG TABLET (FP) PO SCH (10:21)
[2022-02-02] MEDS: PRENATAL VITAMINS W/ FOLIC ACID TABLET (FP) PO SCH (10:21)
[2022-02-02] MEDS: HYDROCORTISONE 2.5% TOPICAL CREAM 30 GM TUBE PR SCH (11:27)
[2022-02-02] MEDS ORDERED: INSULIN (NOVOLOG) ASPART 100 UNITS/ML 10ML VIAL ONE (11:49)
[2022-02-02] MEDS ORDERED: FERROUS SO4 325 MG TABLET (FP) PO SCH (12:00)
[2022-02-03] MEDS ORDERED: chlordiazePOXIDE HCL 10 MG CAPSULE PO ONE (05:00)
[2022-02-03] MEDS ORDERED: MULTIVITAMINS (DAILY MVI) TABLET (FP) PO SCH (10:00)
== END 2022-02-02 12:05 | disposition other institution (70) | DRG 775 ==
LOC: YASAS 15:56 → Y6N 20:50 → Y5N 23:02 → Y6N 23:12
PROVIDERS: ADMIT Allergy & Immunology; ATTEND Allergy & Immunology
PROC: HZ2ZZZZ Detoxification Services for Substance Abuse Treatment (ICD-10-PCS; principal; 2022-01-28)
DX: F10.230 Alcohol dependence with withdrawal, uncomplicated (principal); F12.20 Cannabis dependence, uncomplicated; D50.8 Other iron deficiency anemias; G40.909 Epilepsy, unspecified, not intractable, without status epilepticus; J45.20 Mild intermittent asthma, uncomplicated; K21.9 Gastro-esophageal reflux disease without esophagitis; L29.8 Other pruritus; E11.9 Type 2 diabetes mellitus without complications; Z79.4 Long term (current) use of insulin; Z87.820 Personal history of traumatic brain injury
CPT/HCPCS: 36415; 80053; 80177; 82607; 82746; 82962; 83036; 83540; 83550; 85027; 86780; 87811; C9803-CS; U0003; U0005

== ENCOUNTER 2022-02-02 11:44 | Inpatient (IN) | payer OTHER ==
[2022-02-02] MEDS ORDERED: NICOTINE 10 MG CARTRIDGE (INHALER) IH PRN (12:24)
[2022-02-02] MEDS ORDERED: MAGNESIUM CITRATE 300 ML BOTTLE PO PRN (12:24)
[2022-02-02] MEDS ORDERED: MAG HYDROX/AL HYDROX/SIMETH 30 ML UNIT-DOSE CUP PO PRN (12:24)
[2022-02-02] MEDS ORDERED: guaiFENesin 200 MG/10 ML 10 ML UNIT-DOSE CUPS PO PRN (12:24)
[2022-02-02] MEDS ORDERED: P-EPHED 60MG/TRIPROLIDI 2.5MG TABLET PO PRN (12:24)
[2022-02-02] MEDS ORDERED: IBUPROFEN 400 MG TABLET (FP) PO PRN (12:24)
[2022-02-02] MEDS ORDERED: ACETAMINOPHEN 325 MG TABLET (FP) PO PRN (12:24)
[2022-02-02] MEDS ORDERED: MAGNESIUM HYDROX 2400MG/30ML ORAL SUSPENSION 30 ML CUP PO PRN (12:24)
[2022-02-02] MEDS ORDERED: LOPERAMIDE HCL 2 MG CAPSULE PO PRN (12:24)
[2022-02-02] MEDS ORDERED: ALBUTEROL SO4 HFA INHALER IH PRN (12:30)
[2022-02-02] MEDS: hydrOXYzine PAMOATE 25 MG CAPSULE (FP) PO SCH ×3 (13:59→21:34)
[2022-02-02] MEDS ORDERED: PATIENT'S OWN MEDICATION (NON-FORMULARY) (Insulin Nph Hum/Reg Insulin Hm [Humulin 70-30 Vi SQ SCH (16:30)
[2022-02-02] MEDS: FERROUS SO4 325 MG TABLET (FP) PO SCH (18:05)
[2022-02-02] MEDS: INSULIN (NOVOLOG MIX 70/30) 100 UNITS/ML MDV SQ SCH (18:07)
[2022-02-02] MEDS: THIAMINE HCL 100 MG TABLET (FP) PO SCH (21:33)
[2022-02-02] MEDS: MELATONIN 5 MG TABLETS PO SCH (21:33)
[2022-02-02] MEDS: HYDROCORTISONE ACETATE 25 MG/SUPP.RECT RC SCH (21:35)
[2022-02-02] MEDS ORDERED: INSULIN (NOVOLOG) ASPART 100 UNITS/ML 10ML VIAL ONE (21:37)
[2022-02-02] MEDS: INSULIN SLIDING SCALE (NOVOLOG) 1 VIAL SQ SCH ×2 (21:38→21:41)
[2022-02-02] MEDS: INSULIN (LEVEMIR) 100 UNITS/ML UNITS SQ SCH (21:39)
[2022-02-02] MEDS: levETIRAcetam 250 MG TABLET PO SCH (21:40)
[2022-02-02] MEDS ORDERED: HYDROCORTISONE 2.5% TOPICAL CREAM 30 GM TUBE TP SCH (22:00)
[2022-02-03] MEDS: hydrOXYzine PAMOATE 25 MG CAPSULE (FP) PO SCH ×5 (06:29→21:01)
[2022-02-03] MEDS ORDERED: INSULIN (NOVOLOG) ASPART 100 UNITS/ML 10ML VIAL ONE (06:30)
[2022-02-03] MEDS: INSULIN SLIDING SCALE (NOVOLOG) 1 VIAL SQ SCH ×4 (06:32→21:01)
[2022-02-03 06:35] VITALS: BP 105/70; PULSE 72; TEMP 97.1
[2022-02-03] MEDS: FERROUS SO4 325 MG TABLET (FP) PO SCH ×3 (07:06→18:50)
[2022-02-03] MEDS: INSULIN (NOVOLOG MIX 70/30) 100 UNITS/ML MDV SQ SCH ×2 (07:07→17:13)
[2022-02-03] MEDS ORDERED: NICOTINE 7 MG/24 HOURS TOPICAL PATCH TD SCH (10:00)
[2022-02-03] MEDS ORDERED: MULTIVITAMINS (DAILY MVI) TABLET (FP) PO SCH (10:00)
[2022-02-03] MEDS ORDERED: PANTOPRAZOLE 40 MG TABLET PO SCH (10:00)
[2022-02-03] MEDS ORDERED: PRENATAL VITAMINS W/ FOLIC ACID TABLET (FP) PO SCH (10:00)
[2022-02-03] MEDS: levETIRAcetam 250 MG TABLET PO SCH ×2 (10:30→21:00)
[2022-02-03] MEDS: THIAMINE HCL 100 MG TABLET (FP) PO SCH (21:00)
[2022-02-03] MEDS: INSULIN (LEVEMIR) 100 UNITS/ML UNITS SQ SCH (21:02)
[2022-02-03] MEDS: MELATONIN 5 MG TABLETS PO SCH (21:02)
[2022-02-03] MEDS: HYDROCORTISONE ACETATE 25 MG/SUPP.RECT RC SCH (21:02)
[2022-02-04] MEDS ORDERED: PANTOPRAZOLE 40 MG TABLET PO SCH (06:00)
== END 2022-02-04 04:09 | disposition left against medical advice (07) | DRG 770 ==
LOC: YASAS 11:44 → Y3E 11:45
PROVIDERS: ADMIT Allergy & Immunology; ATTEND Allergy & Immunology
PROC: HZ42ZZZ Group Counseling for Substance Abuse Treatment, Cognitive-Behavioral (ICD-10-PCS; principal; 2022-02-03)
DX: F10.20 Alcohol dependence, uncomplicated (principal); F12.20 Cannabis dependence, uncomplicated; D50.8 Other iron deficiency anemias; G40.909 Epilepsy, unspecified, not intractable, without status epilepticus; J45.20 Mild intermittent asthma, uncomplicated; K21.9 Gastro-esophageal reflux disease without esophagitis; E11.9 Type 2 diabetes mellitus without complications; Z79.4 Long term (current) use of insulin; Z88.8 Allergy status to other drugs, medicaments and biological substances; Z91.013 Allergy to seafood
CPT/HCPCS: 82962

== ENCOUNTER 2022-05-20 13:37 | Inpatient (IN) | payer OTHER ==
[2022-05-20 15:11] VITALS: BMI 27.6
[2022-05-20] MEDS ORDERED: ACETAMINOPHEN 325 MG TABLET (FP) PO PRN ×2 (15:32)
[2022-05-20] MEDS ORDERED: NICOTINE 10 MG CARTRIDGE (INHALER) IH PRN (15:32)
[2022-05-20] MEDS ORDERED: IBUPROFEN 600 MG TABLET (FP) PO PRN (15:32)
[2022-05-20] MEDS ORDERED: METHOCARBAMOL 500 MG TABLET PO PRN (15:32)
[2022-05-20] MEDS ORDERED: MAG HYDROX/AL HYDROX/SIMETH 30 ML UNIT-DOSE CUP PO PRN (15:32)
[2022-05-20] MEDS ORDERED: MAGNESIUM CITRATE 300 ML BOTTLE PO PRN (15:32)
[2022-05-20] MEDS ORDERED: LORazepam 1 MG TABLET PO PRN ×3 (15:32→15:45)
[2022-05-20] MEDS ORDERED: BISMUTH SUBSALICYLATE 524 MG/30 ML PO PRN (15:32)
[2022-05-20] MEDS ORDERED: ONDANSETRON *ODT* 4 MG TABLET SL PRN (15:32)
[2022-05-20] MEDS ORDERED: DICYCLOMINE HCL 10 MG CAPSULE PO PRN (15:32)
[2022-05-20] MEDS ORDERED: IBUPROFEN 400 MG TABLET (FP) PO PRN (15:32)
[2022-05-20] MEDS ORDERED: MAGNESIUM HYDROX 2400MG/30ML ORAL SUSPENSION 30 ML CUP PO PRN (15:32)
[2022-05-20] MEDS ORDERED: BENZOCAINE/MENTHOL (CHLORASEPTIC ) LOZENGE MM PRN (15:32)
[2022-05-20] MEDS ORDERED: LOPERAMIDE HCL 2 MG CAPSULE PO PRN (15:32)
[2022-05-20] MEDS ORDERED: HYDROCORTISONE 1% TOPICAL OINT 30 GM TUBE TP PRN (15:48)
[2022-05-20] MEDS ORDERED: ALBUTEROL SO4 HFA INHALER IH PRN (16:00)
[2022-05-20] MEDS ORDERED: LORazepam 2 MG TABLET PO SCH ×2 (17:00→23:00)
[2022-05-20] MEDS: PANTOPRAZOLE 40 MG TABLET PO SCH (20:00)
[2022-05-20] MEDS: hydrOXYzine PAMOATE 25 MG CAPSULE (FP) PO SCH ×2 (20:00→22:52)
[2022-05-20] MEDS: LORazepam 2 MG TABLET PO SCH ×2 (20:00→22:54)
[2022-05-20] MEDS: PRENATAL VITAMINS W/ FOLIC ACID TABLET (FP) PO SCH (20:02)
[2022-05-20] MEDS: THIAMINE HCL 100 MG TABLET (FP) PO SCH (22:52)
[2022-05-20] MEDS: levETIRAcetam 250 MG TABLET PO SCH (22:52)
[2022-05-20] MEDS: MELATONIN 5 MG TABLETS PO SCH (22:52)
[2022-05-20] MEDS: HYDROCORTISONE 2.5% TOPICAL CREAM 30 GM TUBE RC SCH (22:53)
[2022-05-21] MEDS: hydrOXYzine PAMOATE 25 MG CAPSULE (FP) PO SCH ×5 (05:30→22:52)
[2022-05-21] MEDS: LORazepam 2 MG TABLET PO SCH ×4 (05:30→22:00)
[2022-05-21] MEDS: INSULIN (NOVOLOG MIX 70/30) 100 UNITS/ML MDV SQ SCH ×2 (08:02→17:57)
[2022-05-21] MEDS: PANTOPRAZOLE 40 MG TABLET PO SCH (11:38)
[2022-05-21] MEDS: PRENATAL VITAMINS W/ FOLIC ACID TABLET (FP) PO SCH (11:39)
[2022-05-21] MEDS: levETIRAcetam 250 MG TABLET PO SCH ×2 (11:39→22:00)
[2022-05-21] MEDS: HYDROCORTISONE 2.5% TOPICAL CREAM 30 GM TUBE RC SCH (11:43)
[2022-05-21 14:18] LABS: HEMATOCRIT 34.4 % (35.4-49); HEMOGLOBIN 10.5 GM/dL (11.7-16.9); MCHC 30.6 g/dl (32.0-35.9); MEAN CELL VOLUME 75.3 fl (80-96); MEAN PLT VOLUME 9.1 fl (7.5-11.1); PLATELET COUNT 139 10^3/uL (134-434); RBC 4.57 M/mm3 (4.00-5.60); WHITE BLOOD COUNT 3.2 K/mm3 (4.0-10.0)
[2022-05-21 14:38] LABS: CALCIUM 8.4 mg/dL (8.5-10.1)
[2022-05-21 14:39] LABS: BLOOD UREA NITROGEN 8.7 mg/dL (7-18)
[2022-05-21 14:42] LABS: CREATININE 0.8 mg/dL (0.55-1.3)
[2022-05-21 14:43] LABS: BILIRUBIN,TOTAL 0.3 mg/dL (0.2-1); TOT PROT 6.6 g/dl (6.4-8.2)
[2022-05-21] MEDS: THIAMINE HCL 100 MG TABLET (FP) PO SCH (22:00)
[2022-05-21] MEDS: MELATONIN 5 MG TABLETS PO SCH (22:02)
[2022-05-22] MEDS ORDERED: LORazepam 1 MG TABLET PO SCH ×2 (05:00)
[2022-05-22] MEDS: hydrOXYzine PAMOATE 25 MG CAPSULE (FP) PO SCH ×5 (05:19→22:26)
[2022-05-22] MEDS: LORazepam 1 MG TABLET PO SCH ×4 (05:19→22:26)
[2022-05-22] MEDS: INSULIN (NOVOLOG MIX 70/30) 100 UNITS/ML MDV SQ SCH ×2 (07:28→18:34)
[2022-05-22] MEDS: levETIRAcetam 250 MG TABLET PO SCH ×2 (10:39→22:26)
[2022-05-22] MEDS: PRENATAL VITAMINS W/ FOLIC ACID TABLET (FP) PO SCH (10:39)
[2022-05-22] MEDS: PANTOPRAZOLE 40 MG TABLET PO SCH (10:39)
[2022-05-22] MEDS: HYDROCORTISONE 2.5% TOPICAL CREAM 30 GM TUBE RC SCH (10:41)
[2022-05-22] MEDS: THIAMINE HCL 100 MG TABLET (FP) PO SCH (22:26)
[2022-05-22] MEDS: MELATONIN 5 MG TABLETS PO SCH (22:27)
[2022-05-23] MEDS ORDERED: LORazepam 0.5 MG TABLET PO PRN ×3
[2022-05-23] MEDS ORDERED: LORazepam 0.5 MG TABLET PO SCH ×2 (05:00)
[2022-05-23] MEDS: LORazepam 0.5 MG TABLET PO SCH ×4 (05:26→22:16)
[2022-05-23] MEDS: hydrOXYzine PAMOATE 25 MG CAPSULE (FP) PO SCH ×5 (05:26→22:17)
[2022-05-23] MEDS: INSULIN (NOVOLOG MIX 70/30) 100 UNITS/ML MDV SQ SCH ×3 (07:28→17:12)
[2022-05-23] MEDS: levETIRAcetam 250 MG TABLET PO SCH ×2 (10:17→22:15)
[2022-05-23] MEDS: PRENATAL VITAMINS W/ FOLIC ACID TABLET (FP) PO SCH (10:17)
[2022-05-23] MEDS: PANTOPRAZOLE 40 MG TABLET PO SCH (10:17)
[2022-05-23] MEDS: HYDROCORTISONE 2.5% TOPICAL CREAM 30 GM TUBE RC SCH (10:19)
[2022-05-23] MEDS: GABAPENTIN 300 MG CAPSULE PO SCH ×2 (14:39→22:15)
[2022-05-23] MEDS: THIAMINE HCL 100 MG TABLET (FP) PO SCH (22:16)
[2022-05-23] MEDS: MELATONIN 5 MG TABLETS PO SCH (22:16)
[2022-05-24] MEDS ORDERED: LORazepam 0.5 MG TABLET PO ONE ×3 (05:00)
[2022-05-24] MEDS: GABAPENTIN 300 MG CAPSULE PO SCH (05:21)
[2022-05-24] MEDS: hydrOXYzine PAMOATE 25 MG CAPSULE (FP) PO SCH (05:23)
[2022-05-24 06:19] VITALS: BP 135/85; PULSE 87; TEMP 97.3
[2022-05-24] MEDS: INSULIN (NOVOLOG MIX 70/30) 100 UNITS/ML MDV SQ SCH (07:25)
== END 2022-05-24 11:11 | disposition home or self-care (01) | DRG 775 ==
LOC: YASAS 13:37 → Y3N 18:03 → Y6N 18:22
PROVIDERS: ADMIT Allergy & Immunology; ATTEND Surgery
PROC: HZ2ZZZZ Detoxification Services for Substance Abuse Treatment (ICD-10-PCS; principal; 2022-05-20)
DX: F10.230 Alcohol dependence with withdrawal, uncomplicated (principal); F12.20 Cannabis dependence, uncomplicated; E10.65 Type 1 diabetes mellitus with hyperglycemia; Z79.4 Long term (current) use of insulin; C20 Malignant neoplasm of rectum; C78.7 Secondary malignant neoplasm of liver and intrahepatic bile duct; G40.909 Epilepsy, unspecified, not intractable, without status epilepticus; J45.20 Mild intermittent asthma, uncomplicated
CPT/HCPCS: 36415; 80053; 82962; 85027; 86780; C9803-CS; U0003; U0005

== ENCOUNTER 2023-05-18 12:39 | Inpatient (IN) | payer OTHER ==
[2023-05-18 13:08] VITALS: BMI 24.0
[2023-05-18] MEDS ORDERED: MAGNESIUM HYDROX 2400MG/30ML ORAL SUSPENSION 30 ML CUP PO PRN (14:03)
[2023-05-18] MEDS ORDERED: AMMONIUM LACTATE 12% LOTION 225 GM BOTTLE TP PRN (14:03)
[2023-05-18] MEDS ORDERED: BENZONATATE 200 MG CAPSULE PO PRN (14:03)
[2023-05-18] MEDS ORDERED: guaiFENesin 600 MG TABLET.ER (FP) PO PRN (14:03)
[2023-05-18] MEDS ORDERED: MAG HYDROX/AL HYDROX/SIMETH 30 ML UNIT-DOSE CUP PO PRN (14:03)
[2023-05-18] MEDS ORDERED: BENZOCAINE/MENTHOL (CHLORASEPTIC ) LOZENGE MM PRN (14:03)
[2023-05-18] MEDS ORDERED: IBUPROFEN 400 MG TABLET (FP) PO PRN (14:03)
[2023-05-18] MEDS ORDERED: POLYETHYLENE GLYCOL (HEALTHYLAX) 3350 17 GM PACKET PO PRN (14:03)
[2023-05-18] MEDS ORDERED: NALOXONE HCL (KLOXXADO) 8 MG SPRAY NS PRN (14:03)
[2023-05-18] MEDS ORDERED: NALOXONE HCL 0.4 MG/ML VIAL IM PRN (14:03)
[2023-05-18] MEDS ORDERED: ALBUTEROL SO4 HFA INHALER IH PRN (14:07)
[2023-05-18] MEDS ORDERED: INSULIN (NOVOLOG) ASPART 100 UNITS/ML 10ML VIAL ONE (16:32)
[2023-05-18] MEDS: INSULIN SLIDING SCALE (NOVOLOG) 1 VIAL SQ SCH (16:36)
[2023-05-18] MEDS: PRENATAL VITAMINS W/ FOLIC ACID TABLET (FP) PO SCH (16:37)
[2023-05-18] MEDS: IBUPROFEN 600 MG TABLET (FP) PO PRN (16:39)
[2023-05-18] MEDS: VITAMINS A AND D TOPICAL OINTMENT 60 GM TUBE TP SCH (18:25)
[2023-05-18] MEDS: THIAMINE HCL 100 MG TABLET (FP) PO SCH (21:13)
[2023-05-18] MEDS: hydrOXYzine PAMOATE 25 MG CAPSULE (FP) PO PRN (21:13)
[2023-05-18] MEDS: MELATONIN 5 MG TABLETS PO SCH (21:14)
[2023-05-18] MEDS: PHENYLEPHRINE HCL/COCOA BUTTER 1 EACH SUPP.RECT RC SCH (21:14)
[2023-05-18] MEDS: TOLNAFTATE 1% CREAM 15 GM TUBE TP SCH (21:15)
[2023-05-19] MEDS: VITAMINS A AND D TOPICAL OINTMENT 60 GM TUBE TP SCH ×4 (01:17→19:02)
[2023-05-19] MEDS: INSULIN SLIDING SCALE (NOVOLOG) 1 VIAL SQ SCH ×3 (06:31→16:43)
[2023-05-19] MEDS ORDERED: INSULIN (NOVOLOG) ASPART 100 UNITS/ML 10ML VIAL ONE (06:34)
[2023-05-19] MEDS: PHENYLEPHRINE HCL/COCOA BUTTER 1 EACH SUPP.RECT RC SCH ×2 (10:12→21:18)
[2023-05-19] MEDS: PRENATAL VITAMINS W/ FOLIC ACID TABLET (FP) PO SCH (10:12)
[2023-05-19] MEDS: TOLNAFTATE 1% CREAM 15 GM TUBE TP SCH ×2 (10:13→21:19)
[2023-05-19] MEDS: COLLOIDAL OATMEAL 1 BAR EACH TP PRN (10:16)
[2023-05-19] MEDS: IBUPROFEN 600 MG TABLET (FP) PO PRN ×2 (10:16→19:04)
[2023-05-19] MEDS ORDERED: SENNOSIDES 8.8 MG/5 ML SYRUP PO PRN (12:50)
[2023-05-19] MEDS ORDERED: HYDROCORTISONE 2.5% TOPICAL CREAM 30 GM TUBE RC PRN (12:51)
[2023-05-19] MEDS: DOCUSATE SODIUM 100 MG CAPSULE (FP) PO PRN ×2 (14:39→21:17)
[2023-05-19] MEDS: FERROUS SO4 325 MG TABLET (FP) PO SCH (14:40)
[2023-05-19] MEDS: MELATONIN 5 MG TABLETS PO SCH (21:16)
[2023-05-19] MEDS: THIAMINE HCL 100 MG TABLET (FP) PO SCH (21:16)
[2023-05-20] MEDS: VITAMINS A AND D TOPICAL OINTMENT 60 GM TUBE TP SCH ×4 (00:48→18:43)
[2023-05-20] MEDS: INSULIN SLIDING SCALE (NOVOLOG) 1 VIAL SQ SCH ×2 (07:40→17:04)
[2023-05-20] MEDS: FERROUS SO4 325 MG TABLET (FP) PO SCH (07:40)
[2023-05-20] MEDS ORDERED: INSULIN (NOVOLOG) ASPART 100 UNITS/ML 10ML VIAL ONE (07:44)
[2023-05-20] MEDS: ACETAMINOPHEN 325 MG TABLET (FP) PO PRN (08:34)
[2023-05-20 09:41] LABS: HEMATOCRIT 38.4 % (35.4-49); HEMOGLOBIN 12.5 GM/dL (11.7-16.9); MCH 27.7 pg (25.7-33.7); MCHC 32.6 g/dl (32.0-35.9); MEAN CELL VOLUME 84.9 fl (80-96); MEAN PLT VOLUME 8.4 fl (7.5-11.1); PLATELET COUNT 266 10^3/uL (134-434); RBC 4.52 M/mm3 (4.00-5.60); RDW 25.8 % (11.9-15.9); WHITE BLOOD COUNT 8.2 K/mm3 (4.0-10.0)
[2023-05-20] MEDS: PRENATAL VITAMINS W/ FOLIC ACID TABLET (FP) PO SCH (09:44)
[2023-05-20] MEDS: PHENYLEPHRINE HCL/COCOA BUTTER 1 EACH SUPP.RECT RC SCH ×2 (09:45→21:54)
[2023-05-20 09:47] LABS: POTASSIUM 4.5 mmol/L (3.5-5.1)
[2023-05-20] MEDS: TOLNAFTATE 1% CREAM 15 GM TUBE TP SCH ×2 (09:48→21:55)
[2023-05-20 09:53] LABS: CALCIUM 9.7 mg/dL (8.5-10.1)
[2023-05-20 09:55] LABS: ALBUMIN 2.9 g/dl (3.4-5.0); BLOOD UREA NITROGEN 7.3 mg/dL (7-18)
[2023-05-20 09:58] LABS: CREATININE 0.7 mg/dL (0.55-1.3)
[2023-05-20 10:00] LABS: TOT PROT 7.2 g/dl (6.4-8.2)
[2023-05-20 10:02] LABS: BILIRUBIN,TOTAL 0.4 mg/dL (0.2-1)
[2023-05-20 12:50] LABS: SYPHILIS W/ RPR CONF NON-REACTIVE (NONREACTIVE)
[2023-05-20] MEDS: IBUPROFEN 600 MG TABLET (FP) PO PRN (18:37)
[2023-05-20] MEDS: THIAMINE HCL 100 MG TABLET (FP) PO SCH (21:53)
[2023-05-20] MEDS: DOCUSATE SODIUM 100 MG CAPSULE (FP) PO PRN (21:53)
[2023-05-20] MEDS: MELATONIN 5 MG TABLETS PO SCH (21:53)
[2023-05-21] MEDS: VITAMINS A AND D TOPICAL OINTMENT 60 GM TUBE TP SCH ×4 (01:12→18:07)
[2023-05-21] MEDS ORDERED: INSULIN (NOVOLOG) ASPART 100 UNITS/ML 10ML VIAL ONE ×2 (06:19→16:15)
[2023-05-21] MEDS: INSULIN SLIDING SCALE (NOVOLOG) 1 VIAL SQ SCH ×2 (06:20→16:32)
[2023-05-21] MEDS: ACETAMINOPHEN 325 MG TABLET (FP) PO PRN (06:21)
[2023-05-21] MEDS: FERROUS SO4 325 MG TABLET (FP) PO SCH (07:18)
[2023-05-21] MEDS: PHENYLEPHRINE HCL/COCOA BUTTER 1 EACH SUPP.RECT RC SCH ×2 (09:56→21:16)
[2023-05-21] MEDS: PRENATAL VITAMINS W/ FOLIC ACID TABLET (FP) PO SCH (09:56)
[2023-05-21] MEDS: TOLNAFTATE 1% CREAM 15 GM TUBE TP SCH ×2 (09:57→21:16)
[2023-05-21] MEDS: PANTOPRAZOLE 40 MG TABLET PO SCH (12:08)
[2023-05-21] MEDS: IBUPROFEN 600 MG TABLET (FP) PO PRN ×2 (12:15→18:20)
[2023-05-21 20:44] LABS: PH,URINE 6.5 (5.0-8.0); URINE APPEARANCE CLEAR; URINE BILIRUBIN NEGATIVE (NEGATIVE); URINE COLOR YELLOW; URINE GLUCOSE (UA) 3+ (NEGATIVE); URINE KETONE NEGATIVE (NEGATIVE); URINE LEUK ESTERASE NEGATIVE (NEGATIVE); URINE NITRITE NEGATIVE (NEGATIVE); URINE PROTEIN NEGATIVE (NEGATIVE)
[2023-05-21] MEDS: GABAPENTIN 300 MG CAPSULE PO SCH (21:15)
[2023-05-21] MEDS: MELATONIN 5 MG TABLETS PO SCH (21:15)
[2023-05-21] MEDS: THIAMINE HCL 100 MG TABLET (FP) PO SCH (21:16)
[2023-05-21] MEDS: LOPERAMIDE HCL 2 MG CAPSULE PO PRN (21:16)
[2023-05-22] MEDS: VITAMINS A AND D TOPICAL OINTMENT 60 GM TUBE TP SCH ×4 (00:30→17:00)
[2023-05-22] MEDS: LOPERAMIDE HCL 2 MG CAPSULE PO PRN (06:31)
[2023-05-22] MEDS: IBUPROFEN 600 MG TABLET (FP) PO PRN ×2 (06:32→21:27)
[2023-05-22] MEDS: COLLOIDAL OATMEAL 1 BAR EACH TP PRN (07:02)
[2023-05-22] MEDS: FERROUS SO4 325 MG TABLET (FP) PO SCH (08:10)
[2023-05-22] MEDS: INSULIN SLIDING SCALE (NOVOLOG) 1 VIAL SQ SCH ×2 (08:11→16:58)
[2023-05-22] MEDS ORDERED: INSULIN (NOVOLOG) ASPART 100 UNITS/ML 10ML VIAL ONE (08:23)
[2023-05-22] MEDS: GABAPENTIN 300 MG CAPSULE PO SCH ×2 (09:59→21:26)
[2023-05-22] MEDS: PRENATAL VITAMINS W/ FOLIC ACID TABLET (FP) PO SCH (09:59)
[2023-05-22] MEDS: PHENYLEPHRINE HCL/COCOA BUTTER 1 EACH SUPP.RECT RC SCH ×2 (09:59→21:27)
[2023-05-22] MEDS: TOLNAFTATE 1% CREAM 15 GM TUBE TP SCH ×2 (10:00→21:29)
[2023-05-22] MEDS: PANTOPRAZOLE 40 MG TABLET PO SCH (10:00)
[2023-05-22] MEDS: MELATONIN 5 MG TABLETS PO SCH (21:26)
[2023-05-22] MEDS: hydrOXYzine PAMOATE 25 MG CAPSULE (FP) PO PRN (21:26)
[2023-05-22] MEDS: THIAMINE HCL 100 MG TABLET (FP) PO SCH (21:26)
[2023-05-23] MEDS: VITAMINS A AND D TOPICAL OINTMENT 60 GM TUBE TP SCH ×3 (01:08→11:37)
[2023-05-23] MEDS ORDERED: INSULIN (NOVOLOG) ASPART 100 UNITS/ML 10ML VIAL ONE ×2 (06:19→16:38)
[2023-05-23] MEDS: IBUPROFEN 600 MG TABLET (FP) PO PRN ×3 (06:19→21:25)
[2023-05-23] MEDS: INSULIN SLIDING SCALE (NOVOLOG) 1 VIAL SQ SCH ×2 (06:26→16:38)
[2023-05-23] MEDS: FERROUS SO4 325 MG TABLET (FP) PO SCH (07:37)
[2023-05-23] MEDS: GABAPENTIN 300 MG CAPSULE PO SCH ×2 (09:54→21:24)
[2023-05-23] MEDS: PANTOPRAZOLE 40 MG TABLET PO SCH (09:54)
[2023-05-23] MEDS: TOLNAFTATE 1% CREAM 15 GM TUBE TP SCH ×2 (09:55→21:26)
[2023-05-23] MEDS: PRENATAL VITAMINS W/ FOLIC ACID TABLET (FP) PO SCH (09:55)
[2023-05-23] MEDS: PHENYLEPHRINE HCL/COCOA BUTTER 1 EACH SUPP.RECT RC SCH ×2 (09:55→21:24)
[2023-05-23] MEDS ORDERED: VITAMINS A AND D TOPICAL OINTMENT 60 GM TUBE TP PRN (15:24)
[2023-05-23] MEDS: hydrOXYzine PAMOATE 25 MG CAPSULE (FP) PO PRN (21:24)
[2023-05-23] MEDS: MELATONIN 5 MG TABLETS PO SCH (21:24)
[2023-05-23] MEDS: THIAMINE HCL 100 MG TABLET (FP) PO SCH (21:24)
[2023-05-23] MEDS: BENZOCAINE 28 GM HEMORRHOIDAL OINTMENT RC PRN (21:26)
[2023-05-24] MEDS ORDERED: INSULIN (NOVOLOG) ASPART 100 UNITS/ML 10ML VIAL ONE (06:21)
[2023-05-24] MEDS: INSULIN SLIDING SCALE (NOVOLOG) 1 VIAL SQ SCH (06:21)
[2023-05-24] MEDS: IBUPROFEN 600 MG TABLET (FP) PO PRN ×3 (06:23→22:58)
[2023-05-24] MEDS: FERROUS SO4 325 MG TABLET (FP) PO SCH (07:40)
[2023-05-24] MEDS: PHENYLEPHRINE HCL/COCOA BUTTER 1 EACH SUPP.RECT RC SCH ×2 (09:56→21:41)
[2023-05-24] MEDS: GABAPENTIN 300 MG CAPSULE PO SCH ×2 (09:56→21:40)
[2023-05-24] MEDS: BENZOCAINE 28 GM HEMORRHOIDAL OINTMENT RC PRN ×2 (09:56→21:49)
[2023-05-24] MEDS: PRENATAL VITAMINS W/ FOLIC ACID TABLET (FP) PO SCH (09:56)
[2023-05-24] MEDS: PANTOPRAZOLE 40 MG TABLET PO SCH (09:57)
[2023-05-24] MEDS: TOLNAFTATE 1% CREAM 15 GM TUBE TP SCH ×2 (09:58→21:41)
[2023-05-24] MEDS: LOPERAMIDE HCL 2 MG CAPSULE PO PRN ×2 (10:05→16:51)
[2023-05-24] MEDS: INSULIN (NOVOLOG MIX 70/30) 100 UNITS/ML MDV SQ SCH (16:50)
[2023-05-24] MEDS: MELATONIN 5 MG TABLETS PO SCH (21:40)
[2023-05-24] MEDS: hydrOXYzine PAMOATE 25 MG CAPSULE (FP) PO PRN (21:40)
[2023-05-24] MEDS: DOCUSATE SODIUM 100 MG CAPSULE (FP) PO PRN (21:40)
[2023-05-24] MEDS: THIAMINE HCL 100 MG TABLET (FP) PO SCH (21:40)
[2023-05-25] MEDS: COLLOIDAL OATMEAL 1 BAR EACH TP PRN (06:08)
[2023-05-25] MEDS: IBUPROFEN 600 MG TABLET (FP) PO PRN ×3 (06:10→23:49)
[2023-05-25] MEDS: INSULIN (NOVOLOG MIX 70/30) 100 UNITS/ML MDV SQ SCH ×2 (06:12→17:43)
[2023-05-25] MEDS: FERROUS SO4 325 MG TABLET (FP) PO SCH (07:33)
[2023-05-25] MEDS: PRENATAL VITAMINS W/ FOLIC ACID TABLET (FP) PO SCH (10:06)
[2023-05-25] MEDS: PANTOPRAZOLE 40 MG TABLET PO SCH (10:06)
[2023-05-25] MEDS: PHENYLEPHRINE HCL/COCOA BUTTER 1 EACH SUPP.RECT RC SCH ×2 (10:07→21:27)
[2023-05-25] MEDS: TOLNAFTATE 1% CREAM 15 GM TUBE TP SCH ×2 (10:07→21:27)
[2023-05-25] MEDS: GABAPENTIN 300 MG CAPSULE PO SCH ×2 (10:07→21:27)
[2023-05-25 13:58] LABS: POTASSIUM 4.1 mmol/L (3.5-5.1)
[2023-05-25 14:03] LABS: CALCIUM 9.2 mg/dL (8.5-10.1)
[2023-05-25 14:04] LABS: BASO % 0.5 % (0-2.0); EOS % 5.2 % (0-4.5); HEMATOCRIT 38.1 % (35.4-49); HEMOGLOBIN 12.1 GM/dL (11.7-16.9); LYMPH % 15.9 % (8-40); MCH 27.8 pg (25.7-33.7); MCHC 31.8 g/dl (32.0-35.9); MEAN CELL VOLUME 87.5 fl (80-96); MEAN PLT VOLUME 10.8 fl (7.5-11.1); MONO % 13.7 % (3.8-10.2); NEUT % 64.7 % (42.8-82.8); PLATELET COUNT 196 10^3/uL (134-434); RBC 4.36 M/mm3 (4.00-5.60); RDW 23.4 % (11.9-15.9); WHITE BLOOD COUNT 7.6 K/mm3 (4.0-10.0)
[2023-05-25 14:06] LABS: BLOOD UREA NITROGEN 13.3 mg/dL (7-18)
[2023-05-25 14:07] LABS: BILIRUBIN,TOTAL 0.4 mg/dL (0.2-1); CREATININE 0.8 mg/dL (0.55-1.3); TOT PROT 7.4 g/dl (6.4-8.2)
[2023-05-25 14:55] LABS: ANISOCYTOSIS 2+; MACROCYTOSIS 0
[2023-05-25] MEDS ORDERED: INSULIN (NOVOLOG MIX 70/30) 100 UNITS/ML MDV SQ ONE ×2 (16:43→17:32)
[2023-05-25] MEDS: LOPERAMIDE HCL 2 MG CAPSULE PO PRN (18:57)
[2023-05-25] MEDS: THIAMINE HCL 100 MG TABLET (FP) PO SCH (21:26)
[2023-05-25] MEDS: MELATONIN 5 MG TABLETS PO SCH (21:26)
[2023-05-25] MEDS: hydrOXYzine PAMOATE 25 MG CAPSULE (FP) PO PRN (21:27)
[2023-05-26] MEDS: IBUPROFEN 600 MG TABLET (FP) PO PRN ×2 (06:18→19:06)
[2023-05-26] MEDS: FERROUS SO4 325 MG TABLET (FP) PO SCH (07:10)
[2023-05-26] MEDS: INSULIN (NOVOLOG MIX 70/30) 100 UNITS/ML MDV SQ SCH ×2 (07:11→16:44)
[2023-05-26] MEDS: PRENATAL VITAMINS W/ FOLIC ACID TABLET (FP) PO SCH (10:13)
[2023-05-26] MEDS: PANTOPRAZOLE 40 MG TABLET PO SCH (10:13)
[2023-05-26] MEDS: TOLNAFTATE 1% CREAM 15 GM TUBE TP SCH ×2 (10:13→21:28)
[2023-05-26] MEDS: PHENYLEPHRINE HCL/COCOA BUTTER 1 EACH SUPP.RECT RC SCH ×2 (10:13→21:28)
[2023-05-26] MEDS: GABAPENTIN 300 MG CAPSULE PO SCH ×2 (10:13→21:26)
[2023-05-26] MEDS: LOPERAMIDE HCL 2 MG CAPSULE PO PRN (11:20)
[2023-05-26] MEDS: ACETAMINOPHEN 325 MG TABLET (FP) PO PRN (11:24)
[2023-05-26] MEDS ORDERED: INSULIN (NOVOLOG MIX 70/30) 100 UNITS/ML MDV SQ ONE (16:30)
[2023-05-26] MEDS: MELATONIN 5 MG TABLETS PO SCH (21:26)
[2023-05-26] MEDS: THIAMINE HCL 100 MG TABLET (FP) PO SCH (21:26)
[2023-05-26] MEDS: hydrOXYzine PAMOATE 25 MG CAPSULE (FP) PO PRN (21:26)
[2023-05-26] MEDS ORDERED: TUBERCULIN PPD 5 TU/0.1ML VIAL ID ONE (23:52)
[2023-05-27] MEDS: IBUPROFEN 600 MG TABLET (FP) PO PRN ×2 (06:42→14:22)
[2023-05-27] MEDS: LOPERAMIDE HCL 2 MG CAPSULE PO PRN (06:43)
[2023-05-27] MEDS: COLLOIDAL OATMEAL 1 BAR EACH TP PRN (06:44)
[2023-05-27] MEDS: INSULIN (NOVOLOG MIX 70/30) 100 UNITS/ML MDV SQ SCH ×2 (06:54→18:46)
[2023-05-27] MEDS: FERROUS SO4 325 MG TABLET (FP) PO SCH (07:08)
[2023-05-27] MEDS: TOLNAFTATE 1% CREAM 15 GM TUBE TP SCH ×2 (10:16→21:20)
[2023-05-27] MEDS: PANTOPRAZOLE 40 MG TABLET PO SCH (10:16)
[2023-05-27] MEDS: BENZOCAINE 28 GM HEMORRHOIDAL OINTMENT RC PRN (10:16)
[2023-05-27] MEDS: PRENATAL VITAMINS W/ FOLIC ACID TABLET (FP) PO SCH (10:16)
[2023-05-27] MEDS: GABAPENTIN 300 MG CAPSULE PO SCH ×2 (10:16→21:19)
[2023-05-27] MEDS: PHENYLEPHRINE HCL/COCOA BUTTER 1 EACH SUPP.RECT RC SCH ×2 (10:19→21:20)
[2023-05-27] MEDS ORDERED: TUBERCULIN PPD 5 TU/0.1ML VIAL ID ONE (16:45)
[2023-05-27] MEDS: hydrOXYzine PAMOATE 25 MG CAPSULE (FP) PO PRN (21:19)
[2023-05-27] MEDS: MELATONIN 5 MG TABLETS PO SCH (21:19)
[2023-05-27] MEDS: THIAMINE HCL 100 MG TABLET (FP) PO SCH (21:19)
[2023-05-28] MEDS: IBUPROFEN 600 MG TABLET (FP) PO PRN ×4 (00:32→21:08)
[2023-05-28] MEDS: INSULIN (NOVOLOG MIX 70/30) 100 UNITS/ML MDV SQ SCH ×2 (07:17→17:30)
[2023-05-28] MEDS: FERROUS SO4 325 MG TABLET (FP) PO SCH (07:21)
[2023-05-28] MEDS: PRENATAL VITAMINS W/ FOLIC ACID TABLET (FP) PO SCH (10:17)
[2023-05-28] MEDS: GABAPENTIN 300 MG CAPSULE PO SCH ×2 (10:17→21:07)
[2023-05-28] MEDS: PANTOPRAZOLE 40 MG TABLET PO SCH (10:17)
[2023-05-28] MEDS: PHENYLEPHRINE HCL/COCOA BUTTER 1 EACH SUPP.RECT RC SCH ×2 (10:17→21:08)
[2023-05-28] MEDS: TOLNAFTATE 1% CREAM 15 GM TUBE TP SCH ×2 (10:18→21:26)
[2023-05-28] MEDS: BENZOCAINE 28 GM HEMORRHOIDAL OINTMENT RC PRN (10:21)
[2023-05-28] MEDS: LOPERAMIDE HCL 2 MG CAPSULE PO PRN (10:30)
[2023-05-28] MEDS: MELATONIN 5 MG TABLETS PO SCH (21:07)
[2023-05-28] MEDS: THIAMINE HCL 100 MG TABLET (FP) PO SCH (21:07)
[2023-05-29] MEDS: hydrOXYzine PAMOATE 25 MG CAPSULE (FP) PO PRN ×2 (01:25→21:15)
[2023-05-29] MEDS: IBUPROFEN 600 MG TABLET (FP) PO PRN ×3 (03:11→19:57)
[2023-05-29] MEDS: FERROUS SO4 325 MG TABLET (FP) PO SCH ×2 (07:52→08:31)
[2023-05-29] MEDS: INSULIN (NOVOLOG MIX 70/30) 100 UNITS/ML MDV SQ SCH ×2 (07:53→17:06)
[2023-05-29] MEDS: GABAPENTIN 300 MG CAPSULE PO SCH ×2 (09:54→21:14)
[2023-05-29] MEDS: PANTOPRAZOLE 40 MG TABLET PO SCH (09:54)
[2023-05-29] MEDS: PRENATAL VITAMINS W/ FOLIC ACID TABLET (FP) PO SCH (09:55)
[2023-05-29] MEDS: PHENYLEPHRINE HCL/COCOA BUTTER 1 EACH SUPP.RECT RC SCH ×2 (09:55→21:14)
[2023-05-29] MEDS: TOLNAFTATE 1% CREAM 15 GM TUBE TP SCH ×2 (09:55→21:14)
[2023-05-29] MEDS: THIAMINE HCL 100 MG TABLET (FP) PO SCH (21:14)
[2023-05-29] MEDS: MELATONIN 5 MG TABLETS PO SCH (21:14)
[2023-05-30] MEDS: IBUPROFEN 600 MG TABLET (FP) PO PRN ×3 (01:35→19:00)
[2023-05-30] MEDS: INSULIN (NOVOLOG MIX 70/30) 100 UNITS/ML MDV SQ SCH ×3 (06:28→16:40)
[2023-05-30] MEDS: FERROUS SO4 325 MG TABLET (FP) PO SCH (07:10)
[2023-05-30] MEDS: COLLOIDAL OATMEAL 1 BAR EACH TP PRN (07:16)
[2023-05-30] MEDS: DOCUSATE SODIUM 100 MG CAPSULE (FP) PO PRN ×2 (07:16→21:36)
[2023-05-30 07:27] VITALS: RESP 18
[2023-05-30] MEDS: PRENATAL VITAMINS W/ FOLIC ACID TABLET (FP) PO SCH (10:05)
[2023-05-30] MEDS: PHENYLEPHRINE HCL/COCOA BUTTER 1 EACH SUPP.RECT RC SCH ×2 (10:06→21:36)
[2023-05-30] MEDS: GABAPENTIN 300 MG CAPSULE PO SCH ×2 (10:06→21:36)
[2023-05-30] MEDS: PANTOPRAZOLE 40 MG TABLET PO SCH (10:06)
[2023-05-30] MEDS: TOLNAFTATE 1% CREAM 15 GM TUBE TP SCH ×2 (10:07→21:36)
[2023-05-30] MEDS: THIAMINE HCL 100 MG TABLET (FP) PO SCH (21:36)
[2023-05-30] MEDS: MELATONIN 5 MG TABLETS PO SCH (21:36)
[2023-05-30] MEDS: LOPERAMIDE HCL 2 MG CAPSULE PO PRN (21:37)
[2023-05-31] MEDS: hydrOXYzine PAMOATE 25 MG CAPSULE (FP) PO PRN (00:27)
[2023-05-31] MEDS: IBUPROFEN 600 MG TABLET (FP) PO PRN (02:36)
[2023-05-31] MEDS: INSULIN (NOVOLOG MIX 70/30) 100 UNITS/ML MDV SQ SCH (06:17)
[2023-05-31 06:41] VITALS: BP 121/79; PULSE 94; TEMP 97.8
[2023-05-31] MEDS: FERROUS SO4 325 MG TABLET (FP) PO SCH (07:21)
== END 2023-05-31 07:35 | disposition home or self-care (01) | DRG 772 ==
LOC: YASAS 12:39 → Y3E 15:16
PROVIDERS: ADMIT Allergy & Immunology; ATTEND Psychiatry & Neurology Pain Medicine
PROC: HZ42ZZZ Group Counseling for Substance Abuse Treatment, Cognitive-Behavioral (ICD-10-PCS; principal; 2023-05-18)
DX: F10.20 Alcohol dependence, uncomplicated (principal); F14.20 Cocaine dependence, uncomplicated; F12.20 Cannabis dependence, uncomplicated; F31.9 Bipolar disorder, unspecified; C20 Malignant neoplasm of rectum; C78.7 Secondary malignant neoplasm of liver and intrahepatic bile duct; D64.9 Anemia, unspecified; G40.909 Epilepsy, unspecified, not intractable, without status epilepticus; J45.20 Mild intermittent asthma, uncomplicated; K21.9 Gastro-esophageal reflux disease without esophagitis; K64.4 Residual hemorrhoidal skin tags; E11.9 Type 2 diabetes mellitus without complications; Z79.4 Long term (current) use of insulin; W19.XXXA Unspecified fall, initial encounter; Y92.231 Patient bathroom in hospital as the place of occurrence of the external cause
CPT/HCPCS: 36415; 80053; 81003; 82962; 85025; 85027; 86780; 86803; 87635; 87811